=== PATIENT | male | born 1985 | race Caucasian/White ===

== ENCOUNTER 2018-09-10 23:03 | Emergency (ER) | payer BC ==
[~2018-09-10] VITALS: Ht 188 cm; Wt 93.9 kg
[2018-09-10 23:11] VITALS: Ht 188 cm; Wt 93.9 kg
[2018-09-11 01:43] VITALS: BP 123/65
== END 2018-09-11 01:43 | disposition home or self-care (01) ==
LOC: ED 23:03
DX: S53.402A Unspecified sprain of left elbow, initial encounter (principal); W18.30XA Fall on same level, unspecified, initial encounter; Y93.89 Activity, other specified; Y92.89 Other specified places as the place of occurrence of the external cause; Y99.8 Other external cause status
CPT/HCPCS: J1885